=== PATIENT | male | born 1970 | race Caucasian/White ===

== ENCOUNTER 2024-03-21 07:48 | Day surgery (SDC) | payer OTHER, BC ==
[2024-03-06 16:33] VITALS: BP 139/97
[~2024-03-21] VITALS: Ht 175.3 cm; Wt 100.0 kg
--- NOTE | ~2024-03-21 | OR ---
[facility] [address], [place] [address] Draft DATE OF OPERATION: 03/21/2024 SURGEON: Jake Schmidt MD PREOPERATIVE DIAGNOSIS: Left inguinal hernia. POSTOPERATIVE DIAGNOSIS: Left inguinal hernia, direct and indirect. PROCEDURE: Repair of left direct and indirect inguinal hernia with implantation of Prolene mesh. ANESTHESIA: General endotracheal; Brandon Mccullough, AIRPLANE DISPATCH CLERK and local 10 mL of 0.25% Marcaine with epinephrine. INDICATION: This 53-year-old white man is a patient of physicians at the [facility]. He was diagnosed with a left inguinal hernia by CAT scan performed on February 21, 2024. Hernia was described as a large reducible fat and bowel containing hernia with 1.6 cm wide neck. Hernia sac was considered 5.8 cm in dimension. He was noted to have a reducible left inguinal hernia. He has no concurrent trouble with urination, chronic cough or constipation. He is admitted at this time to undergo repair of the hernia. He understands the risk of bleeding, infection, and recurrence. FINDINGS: A broad-based indirect sac was noted lateral to the inferior epigastric artery and attenuation consistent with direct hernia medial to that. Repair consisted of invagination of the broad-based hernia sac and division of the attenuated fascia of transversalis with implantation of Prolene mesh in an underlay technique. Special care was taken to avoid entrapment of the ilioinguinal nerve which was easily identified and to provide for coverage with mesh allowing for passage of the cord structures without excessive laxity but without being too snug on the cord structures either. PROCEDURE IN DETAIL: The patient was brought to the operating room, given a general endotracheal anesthetic. Preoperative antibiotic Ancef was given. Sequential compression device stockings were used. The abdomen was clipped and prepared with chlorhexidine solution and draped sterilely. An incision was made cephalad to the left pubic tubercle. Dissection was PATIENT NAME: RONDA JACK OPERATIVE REPORT DATE OF : 68 REPORT #: [id number] PHYSICIAN: JAKE SCHMIDT MD PCP: NO PRIMARY CARE PHYSICIAN REPORT IS CONFIDENTIAL AND NOT TO BE RELEASED WITHOUT AUTHORIZATION [facility] [address], [place] [address] Draft carried through the subcutaneous tissue identifying the external oblique fascia and cord structures emanated from the external ring. The external oblique was incised with electrocautery and secured with hemostats. An ilioinguinal nerve branch was dissected free carefully from the surrounding soft tissue and reflected around the external oblique inferiorly. The cord structures were bluntly mobilized from the floor and encircled with a Tiffany drain. Using blunt electrocautery, the cord structures were freed to the internal ring, identifying a broad-based indirect hernia sac associated with the cord. This was dissected free, found to contain fat. No sign of hollow viscus. There was attenuation of the fibers of the transversalis medial to this and the relatively large inferior epigastric artery easily identified. Basically, there were two hernias indirect and direct hernia. Given the broad-based nature of the hernias neck simple invagination of the indirect sac into the properitoneal space was deemed most advisable. The attenuated fibers of the fascia of the transversalis were incised with electrocautery. The properitoneal fat was bluntly . A segment of Prolene mesh was cut to an elliptical configuration and secured in an underlay technique with interrupted 2-0 Prolene sutures. A defect was cut in the graft to accommodate the cord. The tails of the graft were additionally trimmed and secured laterally, encircling the cord fully, but not excessively tight. Special care was taken to avoid incorporation of the indirect and the ilioinguinal nerve noted laterally. Irrigation was undertaken and 10 mL of 0.25% Marcaine with epinephrine injected locally. The cord and nerve were replaced into the canal and the external oblique was reapproximated with running 2-0 Vicryl suture. The 10 mL of 0.25% Marcaine with epinephrine was injected locally and Bri's layer was reapproximated with interrupted 2-0 Vicryl. The skin was closed with running subcuticular 3-0 Vicryl and Steri-Strips were applied as was an Acticoat dressing. The patient tolerated the procedure well, was ultimately extubated and transported to recovery room in good condition having suffered no complication. Sponge, needle and instrument counts reported as correct x3. MD TRACY Perry/MODL /[id number] cc: [facility] PATIENT NAME: SKY JACKONY IBETH OPERATIVE REPORT DATE OF : 68 REPORT #: [id number] PHYSICIAN: JAKE SCHMIDT MD PCP: NO PRIMARY CARE PHYSICIAN REPORT IS CONFIDENTIAL AND NOT TO BE RELEASED WITHOUT AUTHORIZATION [address] [address] Draft Copies: ~ PATIENT NAME: MARCIERONDA OPERATIVE REPORT DATE OF : 68 REPORT #: [id number] PHYSICIAN: JAKE SCHMIDT MD PCP: NO PRIMARY CARE PHYSICIAN REPORT IS CONFIDENTIAL AND NOT TO BE RELEASED WITHOUT AUTHORIZATION
[~2024-03-21 07:48] MED LIST: CEFAZOLIN SODIUM 2 GM/20 ML SYR IV SCH; HEParin SOD (PORCINE) 5,000 UNIT/0.5 ML SYR SUB-Q SCH; IBLOOD GLUCOSE TEST STRIP 1 EA TEST VI PRN; LACTATED RINGER'S 1,000 ML IV SCH; LIDOCAINE HCL 1% 5 ML SDV INJ ONE
[2024-03-21 08:11] VITALS: BP 151/81
[2024-03-21] MEDS ORDERED: fentaNYL citrate 100 MCG/2 ML VIAL ONE (09:36)
[2024-03-21] MEDS ORDERED: KETAMINE in NS 50 MG/5 ML SYR ONE (09:36)
[2024-03-21] MEDS ORDERED: propofoL 200 MG/20 ML VIAL ONE ×2 (09:37→11:11)
[2024-03-21] MEDS ORDERED: ACETAMINOPHEN 1,000 MG/100 ML VIAL ONE (09:37)
[2024-03-21] MEDS ORDERED: ondansetron HCL 4 MG/2 ML VIAL ONE (09:37)
[2024-03-21] MEDS ORDERED: DEXAMETHASONE SOD PHOS 4 MG/ML VIAL ONE (09:37)
[2024-03-21] MEDS ORDERED: KETOROLAC TROMETHAMINE 30 MG/ML VIAL ONE (09:37)
[2024-03-21] MEDS ORDERED: LIDOCAINE HCL 2% 5 ML SDV ONE (09:37)
[2024-03-21] MEDS ORDERED: ROCURONIUM BROMIDE 50 MG/5 ML SYR ONE (09:37)
[2024-03-21] MEDS ORDERED: dexmedeTOMIDine HCl 200 MCG/2 ML VIAL ONE (09:37)
[2024-03-21] MEDS ORDERED: LIDOCAINE HCL 4% 5 ML AMP ONE (09:44)
[2024-03-21] MEDS ORDERED: SUGAMMADEX SODIUM 200 MG/2 ML ML ONE (11:01)
--- NOTE | 2024-03-21 11:38 | NUR ---
03/21/24 1138 Christine Meza 1130-PATIENT ARRIVED TO PACU ON 6L MASK NONAROUSABLE ORAL AIRWAY IN PLACE RR EVEN. SINUS BRADYCARDIA HR 50'S OCCASIONAL PAC. DRESSING TO LEFT GROIN CDI. IVF INFUSING. 1135-RN WAS DOING JAW THRUST AND NOW MAINTAINING AIRWAY. 1137-PATIENT REACTIVE TO VERBAL STIMULI OPENING EYES ORAL AIRWAY REMOVED. HOB ELEVATED. 6L MASK RR EVEN. ORIENTED TO PACU. PLACED ON RA 100% RR EVEN
[2024-03-21] MEDS ORDERED: LACTATED RINGER'S 1,000 ML IV SCH (11:45)
[2024-03-21] MEDS ORDERED: ACETAMINOPHEN 500 MG TAB PO PRN (11:45)
[2024-03-21] MEDS ORDERED: OXYCODONE/APAP 7.5/325 TAB PO PRN (11:45)
[2024-03-21] MEDS ORDERED: NALOXONE HCL 0.4 MG SYR IV PRN (11:45)
[2024-03-21] MEDS ORDERED: IBUPROFEN 600 MG TAB PO PRN (11:45)
[2024-03-21] MEDS ORDERED: TYLENOL EXTRA500 MG PO (11:47)
[2024-03-21] MEDS ORDERED: PERCOCET 7.5-31 EACH PO (11:48)
[2024-03-21] MEDS ORDERED: MOTRIN IB200 MG PO (11:49)
[2024-03-21 12:17] VITALS: BP 137/82
--- NOTE | 2024-03-21 12:30 | NUR ---
1205: PATIENT BACK IN DAY SURGERY ROOM FROM PACU. DENIES PAIN AND NAUSEA. LEFT GROIN DRESSING WITH SMALL AMOUNT OF RED DRAINAGE. VS CHECKED. IV SITE WNL. SCDs ON. TOLERATING WATER. GIVEN SALTINE CRACKERS. GIRLFRIEND AT BESIDE. CALL LIGHT WITHIN REACH. 1225: WATER REFILLED. STAND BY ASSIST WHILE PATIENT GOT OOB. STAND BY ASSIST WHILE PATIENT DRESSED. PATIENT NOW SITTING IN BED. GIRLFRIEND IN ROOM. CALL LIGHT WITHIN REACH.
[2024-03-21 13:20] VITALS: BP 142/93
--- NOTE | 2024-03-21 13:42 | NUR ---
1255: DISCHARGE INSTRUCTIONS GIVEN TO PATIENT AND GIRLFRIEND. NO URGE TO VOID AT THIS TIME. CONTINUES TO DRINK WATER. CALL LIGHT WITHIN REACH.
--- NOTE | 2024-03-21 13:52 | NUR ---
1340: STAND BY ASSIST TO BATHROOM. PATIENT ABLE TO VOID PER URINAL. GAIT STEADY. 1345: IV DC'D WNL. TIP INTACT. DRESSING APPLIED. PATIENT DISCHARGED TO HOME VIA WHEELCHAIR WITH GIRLFRIEND.
== END 2024-03-21 13:45 | disposition home or self-care (01) ==
LOC: DS 07:48
PROVIDERS: ATTEND Surgery
PROC: 0YU64JZ Supplement Left Inguinal Region with Synthetic Substitute, Percutaneous Endoscopic Approach (ICD-10-PCS; principal; 2024-03-21 09:30)
DX: K40.90 Unilateral inguinal hernia, without obstruction or gangrene, not specified as recurrent (principal); I10 Essential (primary) hypertension; Z90.09 Acquired absence of other part of head and neck
CPT/HCPCS: J0131; J0690; J1100; J1644; J1885; J2001; J2405; J2704; J3010; J3490; J7121